=== PATIENT | female | born 1995 | race Caucasian/White ===

== ENCOUNTER 2017-03-20 21:12 | Emergency (ER) | payer OTHER, SELFPAY ==
[~2017-03-20] VITALS: Ht 167.6 cm; Wt 86.1 kg
[2017-03-20 21:13] VITALS: BP 130/84
[2017-03-20] MEDS ORDERED: NAPR500T2 PO (22:26)
[2017-03-20] MEDS ORDERED: ROBA500T PO (22:26)
[2017-03-20] MEDS: NAPROXEN 250 MG TAB PO ONE (22:31)
[2017-03-20] MEDS: METHOCARBAMOL 500 MG TAB PO ONE (22:32)
== END 2017-03-20 22:36 | disposition home or self-care (01) ==
LOC: M ED 22:17
DX: S13.4XXA Sprain of ligaments of cervical spine, initial encounter (principal); R20.2 Paresthesia of skin; X58.XXXA Exposure to other specified factors, initial encounter; Y92.099 Unspecified place in other non-institutional residence as the place of occurrence of the external cause; Y93.89 Activity, other specified; Y99.9 Unspecified external cause status